=== PATIENT | male | born 1960 | race Caucasian/White ===

== ENCOUNTER 2017-04-10 04:29 | Inpatient (IN) ==
--- NOTE | 2017-04-10 06:41 | Internal Med History&Physical ---
Date of Encounter: 04/10/17 Time of Encounter: 06:38 Assessment and Plan (1) Acute congestive heart failure Current visit: Yes Status: Acute Echo from 2015 reveals grossly normal EF with diastolic dysfunction Current presentation with worsening shortness of breath, gross fluid overload, CHF findings on x-ray and good response to Lasix consistent with acute heart failure. Plan: Lasix 40 mg IV twice a day, rate control. Trend troponin to rule out ACS. Daily weights. Strict I's and O's. Fluid and salt restriction. Patient counseling regarding lifestyle modification. Qualifiers: Congestive heart failure type: diastolic Qualified Code(s): I50.31 - Acute diastolic (congestive) heart failure (2) COPD exacerbation Current visit: Yes Status: Acute He reports increased wheezing and shortness of breath, lung auscultation reveals bilateral expiratory wheezes. Plan: We will treat him with inhaled DuoNeb and IV steroids. (3) Type 2 diabetes mellitus Current visit: Yes Status: Acute We will provide insulin sliding scale, pre-meal and basal long-acting insulin. Qualifiers: Diabetes mellitus complication status: with circulatory complication Diabetes mellitus complication detail: with other circulatory complications Diabetes mellitus termination clerk insulin use: with skilled nursing use Qualified Code(s) : E11.59 - Type 2 diabetes mellitus with other circulatory complications; Z79.4 - group home (current) use of insulin (4) Morbid obesity Current visit: Yes Status: Acute Outpatient weight loss regimen. (5) Obstructive sleep apnea Current visit: Yes Status: Acute Nighttime CPAP. (6) Atrial fibrillation with RVR Current visit: No Status: Acute Continue Cardizem drip. Check echocardiogram. Trend troponin. Continue Eliquis. Internal Medicine - H&P: HPI Chief complaint: Shortness of breath Admitted From: Intrahospital Transfer Plans for Post Hospital Care: Home History of present illness: Mr. Almodovar is a 56 year old male with past medical history significant for COPD , coronary artery disease, atrial fibrillation and diabetes who presents to [facility] for evaluation of shortness of breath. He reports 3 days of progressively worsening severe shortness of breath exacerbated by exertion, associated with a dull substernal chest pain, palpitations described as rapid heartbeat, severe wheezing and dry cough. Denies fevers chills nausea vomiting bleeding bruising, reports chronic lower extremity edema. He presented to the emergency department at [facility] where he was found to be an atrophic fibrillation with rapid ventricular response he was given Lasix and nitroglycerin referred for transfer to our facility. A 10 point review of systems was negative except as above Family history was negative for premature coronary artery disease in his parents. Past Med Surg Social Fam HX - Past Medical History Medical history: CHF, coronary artery disease, diabetes, hyperlipidemia, hypertension Psychiatric history: no psych history - Past Surgical History Surgical History: angioplasty/stent - Social History Smoking Status: Never smoker Smokeless Tobacco Status: No Alcohol use: occasionally Drug use: none Internal Medicine - H&P: Meds Atorvastatin [Lipitor] 20 mg PO HS 06/06/15 [History] Carvedilol 25 mg PO BID 06/06/15 [History] Lisinopril [Zestril] 10 mg PO DAILY 06/06/15 [History] metFORMIN [Glucophage] 1,000 mg PO BIDWM 06/06/15 [History] Furosemide [Lasix] 40 mg PO BID 10/15/15 [History] Gabapentin [Neurontin] 600 mg PO TID 10/15/15 [History] Insulin Glargine,Hum.rec.anlog [Lantus Solostar] 70 unit SQ HS 10/15/15 [History ] Potassium Chloride [K-Tab ER] 20 meq PO BID 10/15/15 [History] Apixaban [Eliquis] 5 mg PO DAILY 04/10/17 [History] Fluticasone/Vilanterol [Breo Ellipta 100-25 Mcg INH] 1 each IH DAILY 04/10/17 [ History] Ipratropium/Albuterol Sulfate [Combivent Respimat Inhal [place]] 4 gm IH Q4H PRN 04/10/17 [History] Tiotropium [Spiriva] 18 mcg IH 0700 04/10/17 [History] 3 Allergy/AdvReac Type Severity Reaction Status Date / Time No Known Allergies Allergy Verified 04/10/17 03:16 All Systems PM: A 10-system review of systems was performed and is negative for pertinent findings except as documented above in the HPI. - Constitutional General appearance: Present: mild distress, A&O X 3 - Eye Eye exam: Present: PERRL, conjuntiva pink, sclera anicteric Pupils: Present: PERRL - Neck Neck exam general surgery: Present: supple, trachea midline. Absent: lymphadenopathy - Respiratory Respiratory exam: Present: wheezes (Bilateral expiratory wheezes). Absent: accessory muscle use, rales, rhonchi - Cardiovascular Cardiovascular exam: Present: irregular rhythm, +S1, +S2, tachycardia. Absent: diastolic murmur, gallop, JVD, rubs, systolic murmur - GI/Abdominal GI/Abdominal exam: Present: normal bowel sounds, soft (Obese), no peritoneal signs. Absent: distended, tenderness - Extremities Exam Extremities exam: Present: pedal edema (2+ lower extremity pitting edema), warm , radial pulses palpable and symmetrical. Absent: calf tenderness, cyanotic - Neurological Exam Neurological exam: Present: CN II-XII intact, oriented X3, no focal deficits. Absent: pronater drift, facial droop, speech deficit - Skin Skin exam: Present: dry, intact Internal Med - H&P Results - Labs Labs: Field medical record ABG reveals a pH of 7.34, PCO2 of 46, PO2 135. BNP was elevated at 233. Troponin was 0.02 - EKG Data -: EKG Interpreted by Myself (A. fib 136 BPM, old inferior wall RI with Q waves , rate related ST changes.) - Impressions Chest x-ray shows cardiomegaly and vascular congestion consistent with CHF.
[2017-04-10] MEDS ORDERED: *HR* OxyCODONE Immed Rel 5 MG TABLET PO PRN (06:52)
[2017-04-10] MEDS ORDERED: Acetaminophen 325 MG TABLET PO PRN (06:52)
[2017-04-10] MEDS ORDERED: Naloxone 0.4 MG/ML INJ IVP PRN (06:52)
[2017-04-10] MEDS ORDERED: 0.9 % Sodium Chloride 250 ML ONE (07:12)
[2017-04-10] MEDS ORDERED: *HR* Metoprolol 5 MG/5 ML VIAL IVP SCH (07:19)
[2017-04-10 07:52] LABS: Basophils # 0.1 K/mcL (0.0-0.2); Basophils % 0.6 %; Eosinophils % 0.2 %; Hematocrit 43.5 % (37.5-50.1); Hemoglobin 14.3 g/dL (12.9-16.9); Immature Granulocytes % 1.5 % (0-4); Lymphocytes # 0.6 K/mcL (0.6-4.6); Lymphocytes % 6.7 %; Mean Corpuscular HGB Conc 32.9 g/dL (31.6-35.5); Mean Corpuscular Hemoglobin 29.5 pg (28.0-33.3); Mean Corpuscular Volume 89.7 fL (83.0-100.0); Mean Platelet Volume 8.9 fL (9.4-12.4); Monocytes # 0.3 K/mcL (0.0-1.3); Monocytes % 2.9 %; Neutrophils # 7.5 K/mcL (1.6-8.9); Platelet Count 236 K/mcL (140-400); Red Blood Count 4.85 M/mcL (4.19-5.50); Red Cell Distribution Width 14.5 % (11.5-14.5); Segmented Neutrophils % 88.1 %
[2017-04-10] MEDS ORDERED: Ipratropium/Albuterol Neb 3 ML IH SCH ×2 (08:00)
[2017-04-10 08:06] LABS: Alanine Aminotransferase 62 Units/L (0-55); Albumin 3.6 g/dL (3.5-5.0); Albumin/Globulin Ratio 1.1 (1.1-2.2); Alkaline Phosphatase 81 Units/L (38-126); Aspartate Amino Transferase 25 Units/L (5-34); BUN/Creatinine Ratio 18 (6-26); Bilirubin,Total 0.7 mg/dL (0.2-1.2); Blood Urea Nitrogen 19 mg/dL (8-26); Carbon Dioxide 26 mEq/L (19-29); Chloride 102 mEq/L (98-109); Globulin 3.4 g/dL (2.4-3.5); Glucose 470 mg/dL (70-99); Osmolality,Calculated 311 (280-300); Sodium 139 mEq/L (136-145); eGFR For African Americans > 60 (> 60); eGFR For Non-African Americans > 60 (> 60)
[2017-04-10 08:22] LABS: Thyroid Stimulating Hormone 0.954 mcIU/mL (0.350-4.840)
[2017-04-10] MEDS ORDERED: APIXABAN 5 MG TABLET PO SCH (09:00)
[2017-04-10] MEDS: *HR* Metoprolol 5 MG/5 ML VIAL IVP PRN (09:00)
[2017-04-10] MEDS: Gabapentin 300 MG CAPSULE PO SCH ×3 (09:00→20:31)
[2017-04-10] MEDS: Furosemide 40 MG/4 ML VIAL IVP SCH ×2 (09:01→20:31)
[2017-04-10] MEDS ORDERED: Diltiazem CD (24hr) 180 MG CAPSULE PO SCH (10:30)
[2017-04-10] MEDS ORDERED: Ipratropium/Albuterol Neb 3 ML IH PRN (10:49)
[2017-04-10] MEDS ORDERED: D5% in Water 1,000 ML IVC PRN (10:51)
[2017-04-10] MEDS ORDERED: *HR* Dextrose 50 % in Water (Syg) 50 ML SYRINGE IVP PRN (10:51)
[2017-04-10] MEDS ORDERED: Dextrose Gel 15 GM PO PRN ×2 (10:51)
--- NOTE | 2017-04-10 10:53 | Event Note ---
<Mojgan Aguilar - Last Filed: 04/10/17 10:38> Date of Encounter: 04/10/17 Time of Encounter: 10:38 56 year old male evaluated at bedside. He was admitted overnight for Afib RVR. Patient was laying up in bed comfortably, in no acute distress. He states he has not missed any doses of his home medications. He denies nausea or vomiting, has mild diarrhea. admits to shortness of breath and wheezing. denies fever or chills. Physical Exam: General: alert and oriented x3, obese, in no apparent distress CV: tachycardic, irregular rhythm Respiratory: mild bilateral wheezing present ABdomen: obese, distended, firm, non tender, positive bowel sounds Extremities: bilateral lower extremity +1 pitting edema, ulcer found on right lomas anteriorly, bilateral lower extremity erythema present. Assessment/Plan: 1. Afib RVR Etiology likely multifactorial in setting of fluid overload, vascular congestion , morbid obesity, MARAI DOLORES. patient would likely benefit from bariatric surgery. Plan: continue IV cardizem drip initated PO cardizem 180mg CD daily continue to monitor. Echo pending 2. Acute CHF: last echo fro 07/01/15 showed LVE 50%, mild concentric LVH, moderate LV diastolic dysfunction, RV not well viisualized, mild aortic sclerosis CXR showed cardiomegaly, vascular congestion Plan: continue lasix 40mg IV BID 3. COPD: likely not in exacerbation. mild wheezing present on exam. continue PRN duoNebs at this time. 4. Type 2 DM uncontrolled. glucose this am 470 continue basal insulin, medium dose sliding scale, ACHS accuchecks, diabetic diet. 5. morbid obesity 6. MARIA DOLORES continue CPAP at night. 7. DVT prophylaxis: continue Eliquis. <Mat Watt - Last Filed: 04/10/17 13:54> Date of Encounter: 04/10/17 I examined this patient and my medical decision-making was reviewed with the Resident Physician. I agree with the documented findings, disposition and treatment plan as described except to the extent set forth below.
--- NOTE | 2017-04-10 11:02 | Cardiology Consult Note ---
Date of Encounter: 04/10/17 Time of Encounter: 08:30 Assessment and Plan (1) Atrial flutter with rapid ventricular response Current Visit: Yes Status: Acute Per cardiology: -ECG with atrial flutter with RVR, HR 136. -Recently diagnosed with atrial fibrillation per primary epidemiology intern. -CHads 2 vasc score 3 (HTN, vascular disease, DM). ON elqiuis. Denies bleeding or blood loss. Will change to BID dosing of elqiuis. -TSH, Mg, and K within normal limits. -ON beta miles and cardizem drip at 12.5mg/hour. -Echo pending, will complete once HR is controlled. -Will complete echo once HR is controlled. -Recommend titrate cardizem drip. -Eliquis changed to BID dosing. -Will obtain records from primary epidemiology intern office. (2) Diastolic congestive heart failure, NYHA class 3 Current Visit: Yes Status: Suspected Per cardiology: -Suspected diastolic CHF. -Reports worsening edema. 2+ pitting edema bilaterally. -Reports increased shortness of breath. Mild pulmonary vascular congestion noted per chest x-ray. -ECHo [facility] 2014 with LVEF 50%, mild concentric LVH, moderate diastolic dysufnction, mild , mildly dilated sinus of valsalva. -Reports recent echo at primary epidemiology intern office. -ON lasix 40IV BID started per primary service. -Patient states baseline weight 321 pounds, weight per [facility] 331 pounds. -Strict I/os, daily weights, and fluid restriction. -Will continue to monitor Qualifiers: Congestive heart failure chronicity: acute Qualified Code(s): I50.31 - Acute diastolic (congestive) heart failure (3) Coronary artery disease Current Visit: Yes Status: Acute Per cardiology: -Known CAD with reports LHC and stenting 2013. -On statin, beta blcoker. -Denies current chest pain, however stats did have some chest pain when HR was elevated. -ECG with atrial flutter. -Troponins negative x2. -Echo [facility] 2014 as above. -Reports recent echo and stress at primary epidemiology intern. -Will obtain records from primary epidemiology intern. -Will continue to monitor. Qualifiers: Coronary Disease-Associated Artery/Lesion type: [place] artery [place] vs. transplanted heart: [place] heart Associated angina: without angina Qualified Code(s): I25.10 - Atherosclerotic heart disease of [place] coronary artery without angina pectoris Discussion w patient/family: The assessment and plan as outlined above was discussed with the patient who expressed understanding and agreement. All questions were answered. Thank you for involving us in the care of your patient. Please call with any questions. Discussed and reviewed with . History of Present Illness Consult date: 04/10/17 Requesting physician: Hunter Castro Consult reason: CHF exacerbation, atrial fibrillation RVR Chief complaint: shortness of breath History of present illness: Mr. Almodovar is a 56 year old male with a relevant past medical history of CAD, [place] with reported LHC and stenting 2013, DM, HTN, hyperlipidemia, and family history of CAD. Patient states he went to see his primary epidemiology intern, Dr.Bruce Qureshi, 3 weeks ago and was noted to be in atrial fibrillation. The patient states his HR was elevated and increased his beta miles and sent him home. Patient states since this diagnosis, he has become more shortness of breath. Patient states he decided to go to ER due to shortness of breath. Patient states he did have some chest pain that occured at rest when his HR was elevated. Patient denies current chest pain. Patient admits to palpitations. Patient admits to increased shortness of breath. Patient reports had recent nuclear stress and echo at primary epidemiology intern office within the last 2 months. Past Med Surg Social Fam HX - Past Medical History Attestation: Yes The following information was validated with the patient. Source: patient Medical history: CHF, coronary artery disease, diabetes, hyperlipidemia, hypertension Psychiatric history: no psych history - Past Surgical History Surgical History: angioplasty/stent - Social History Smoking Status: Never smoker Smokeless Tobacco Status: No Alcohol use: occasionally Drug use: none - Family History Father Living Status: Age at : 65 Cause of : Cancer Hx Family Cardiac Disorders: Yes (HTN) Hx Family Cancer: Yes (skin) Mother Living Status: Age at : 71 Cause of : Heart attack Hx Family Cardiac Disorders: Yes ([place]) Hx Family Respiratory Disorders: Yes (COPD) Hx Family Endocrine Disorder: Yes (DM) Medications and Allergies Atorvastatin [Lipitor] 20 mg PO HS 06/06/15 [History] Carvedilol 25 mg PO BID 06/06/15 [History] Lisinopril [Zestril] 10 mg PO DAILY 06/06/15 [History] metFORMIN [Glucophage] 1,000 mg PO BID 06/06/15 [History] Furosemide [Lasix] 40 mg PO DAILY PRN 10/15/15 [History] Insulin Glargine,Hum.rec.anlog [Lantus Solostar] 70 unit SQ HS 10/15/15 [History ] Potassium Chloride [K-Tab ER] 20 meq PO BID 10/15/15 [History] Apixaban [Eliquis] 5 mg PO BID 04/10/17 [History] Fluticasone/Vilanterol [Breo Ellipta 200-25 Mcg INH] 1 puff IH DAILY 04/10/17 [ History] Gabapentin [Neurontin] 800 mg PO TID 04/10/17 [History] Ipratropium/Albuterol Sulfate [Combivent Respimat Inhal [place]] 1 puff IH QID [History] Tiotropium [Spiriva] 18 mcg IH DAILY 04/10/17 [History] glipiZIDE [Glipizide] 5 mg PO DAILY 04/10/17 [History] 3 Allergy/AdvReac Type Severity Reaction Status Date / Time No Known Allergies Allergy Verified 04/10/17 03:16 All Systems Review: A 10-system review of systems was performed and is negative for pertinent findings except as documented above in the HPI. - Cardiovascular Cardiovascular: as per HPI, chest pain at rest, dyspnea on exertion, irregular heart rhythm, palpitations Physical Examination Vital Signs, Last 4 Hours Temp Pulse Resp BP Pulse Ox 04/10/17 07:55 97.6 F 132 20 130/82 92 General: Conversant, No Apparent Distress HEENT: Atraumatic, Normocephaly, Mucus Membranes Moist Neck: No JVD, Normal carotid pulses Cardiac: Normal S1 and S2, No Murmur, Other (Irregularly, irregular) Lungs: Other (Lung sounds diminished throughout. ) Neuro: Alert and responsive, No focal deficits noted Abdomen: Soft, Non-Tender Skin: No rashes noted on visualized skin Musculoskeletal: No Chest Wall Tenderness Extremities: No Clubbing, No Cyanosis, Normal Pulses, Other (2+ bilateral lower extremity pitting edema. ) Results 04/10/17 07:10 04/10/17 07:10 Lab Results Active Medications Acetaminophen (Tylenol) 650 mg PO Q6HR PRN PRN Reason: Mild Pain (1-3) Stop: 10/10/17 06:53 Albuterol/Ipratropium (Duoneb) 3 ml IH [id number] PRN PRN Reason: Wheezing Stop: 10/10/17 08:01 Apixaban (Eliquis) 5 mg PO BID KARIE Stop: 10/10/17 21:01 Atorvastatin Calcium (Lipitor) 20 mg PO HS KARIE Stop: 10/10/17 21:01 Dextrose/Water (Dextrose 50% (Syg)) 25 ml IVP AD PRN PRN Reason: Hypoglycemia Stop: 10/10/17 10:52 Diltiazem HCl (Cardizem Cd) 180 mg PO DAILY [facility] Stop: 10/10/17 10:31 Last Admin: 04/10/17 10:29 Dose: 180 mg Docusate Sodium (Colace) 100 mg PO BID PRN PRN Reason: Constipation Stop: 10/10/17 06:53 Furosemide (Lasix) 40 mg IVP BID [facility] Stop: 10/10/17 09:01 Last Admin: 04/10/17 09:01 Dose: 40 mg Gabapentin (Neurontin) 600 mg PO TID KARIE Stop: 10/10/17 09:01 Last Admin: 04/10/17 09:00 Dose: 600 mg Glucagon (Glucagen) 1 mg IM ONCE PRN PRN Reason: Hypoglycemia Stop: 10/10/17 10:52 Glucose (Gluctose) 15 gm PO ONCE PRN PRN Reason: Hypoglycemia Stop: 10/10/17 10:52 Glucose (Gluctose) 30 gm PO ONCE PRN PRN Reason: Hypoglycemia Stop: 10/10/17 10:52 Diltiazem HCl 125 mg/ Dextrose 125 mls @ 10 mls/hr IVC .[id number] KARIE; 10 MG/HR PRN Reason: Protocol Stop: 10/10/17 07:01 Last Titration: 04/10/17 10:15 Dose: 17.5 mg/hr, 17.5 mls/hr Dextrose (Dextrose 5%) 1,000 mls @ 100 mls/hr IVC .Q10H PRN PRN Reason: HYPOGLYCEMIA Stop: 10/10/17 10:52 Insulin Detemir (Levemir) 50 unit SQ HS KARIE Stop: 10/10/17 21:01 Insulin Human Lispro (Humalog) 0 units SQ HS KARIE PRN Reason: Protocol Stop: 10/10/17 21:01 Insulin Human Lispro (Humalog) 0 units SQ TIDAC KARIE PRN Reason: Protocol Stop: 10/10/17 11:31 Lisinopril (Zestril) 10 mg PO DAILY KARIE PRN Reason: Protocol Stop: 10/10/17 09:01 Last Admin: 04/10/17 10:17 Dose: 10 mg Metoprolol Tartrate (Lopressor) 5 mg IVP Q6HR PRN PRN Reason: tachycardia Stop: 10/10/17 07:20 Last Admin: 04/10/17 09:00 Dose: 5 mg Naloxone HCl (Narcan) 0.4 mg IVP Q2MIN PRN PRN Reason: Opioid Reversal Stop: 10/10/17 06:53 Oxycodone HCl (Roxicodone) 5 mg PO Q6HR PRN PRN Reason: Moderate Pain (4-6) Stop: 10/10/17 06:53 Pharmacy Profile Note (Patient Taking Own Medication) 1 each IH DAILY [facility] Stop: 10/10/17 09:01 Last Admin: 04/10/17 10:30 Dose: Not Given Laboratory Tests 04/10/17 04/10/17 04/10/17 02:25 07:10 07:10 Hgb 14.3 Potassium 4.0 Creatinine 1.05 Magnesium Troponin I 0.02 TSH 0.954 04/10/17 04/10/17 07:10 08:30 Hgb Potassium Creatinine Magnesium 2.2 Troponin I 0.03 TSH - Imaging and Cardiology Chest Xray: report reviewed Echo: pending - EKG Interpretation EKG results cardiology: personally reviewed (ECG with atrial flutter with RVR, HR 136.), other (Telemetry reviewed with average HR 129, atrial flutter.) Consult Discharge Plan - Plan Referrals: Candelaria Gifford, HOSPITAL INTERN [Primary Care Provider] -
[2017-04-10] MEDS ORDERED: methylPREDNISolone 125 MG/2 ML VIAL IVP SCH (12:00)
[2017-04-10] MEDS: Metoprolol XL (24 HR) Succ 50 MG TAB.ER.24H PO SCH ×2 (12:27→20:31)
[2017-04-10] MEDS: Insulin LISPRO 300 UNITS/3 ML VIAL SQ SCH ×3 (15:33→22:49)
[2017-04-10] MEDS ORDERED: *HR* Metoprolol 5 MG/5 ML VIAL IVP ONE (19:05)
[2017-04-10] MEDS: APIXABAN 5 MG TABLET PO SCH (20:31)
[2017-04-10] MEDS ORDERED: Insulin DETEMIR 100 UNIT/ML X5UNITS SQ SCH (21:00)
[2017-04-11] MEDS ORDERED: 0.9 % Sodium Chloride 500 ML ONE (00:32)
[2017-04-11 04:42] LABS: Basophils % 0.1 %; Hematocrit 44.6 % (37.5-50.1); Hemoglobin 14.2 g/dL (12.9-16.9); Lymphocytes # 0.8 K/mcL (0.6-4.6); Lymphocytes % 5.6 %; Mean Corpuscular HGB Conc 31.8 g/dL (31.6-35.5); Mean Corpuscular Hemoglobin 28.4 pg (28.0-33.3); Mean Corpuscular Volume 89.2 fL (83.0-100.0); Mean Platelet Volume 8.5 fL (9.4-12.4); Monocytes % 7.6 %; Neutrophils # 11.6 K/mcL (1.6-8.9); Platelet Count 296 K/mcL (140-400); Red Cell Distribution Width 14.6 % (11.5-14.5); Segmented Neutrophils % 85.7 %
[2017-04-11 04:58] LABS: BUN/Creatinine Ratio 21 (6-26); Blood Urea Nitrogen 20 mg/dL (8-26); Calcium 9.9 mg/dL (8.6-10.8); Carbon Dioxide 29 mEq/L (19-29); Chloride 100 mEq/L (98-109); Glucose 356 mg/dL (70-99); Osmolality,Calculated 305 (280-300); Potassium 3.8 mEq/L (3.5-4.5); Sodium 139 mEq/L (136-145); eGFR For African Americans > 60 (> 60); eGFR For Non-African Americans > 60 (> 60)
[2017-04-11] MEDS: Furosemide 40 MG/4 ML VIAL IVP SCH ×2 (07:50→21:35)
[2017-04-11] MEDS: Gabapentin 300 MG CAPSULE PO SCH ×3 (07:51→21:35)
[2017-04-11] MEDS: APIXABAN 5 MG TABLET PO SCH ×2 (07:51→21:35)
[2017-04-11] MEDS: Metoprolol XL (24 HR) Succ 50 MG TAB.ER.24H PO SCH ×3 (07:51→21:35)
[2017-04-11] MEDS: Aspirin Enteric Coated 81 MG Tablet PO SCH (07:51)
[2017-04-11] MEDS: *HR* Metoprolol 5 MG/5 ML VIAL IVP PRN ×2 (07:51→14:50)
[2017-04-11] MEDS: Insulin LISPRO 300 UNITS/3 ML VIAL SQ SCH ×4 (07:52→21:36)
[2017-04-11] MEDS ORDERED: Metoprolol XL (24 HR) Succ 50 MG TAB.ER.24H PO ONE (08:50)
[2017-04-11] MEDS ORDERED: Metoprolol XL (24 HR) Succ 50 MG TAB.ER.24H PO SCH (09:00)
--- NOTE | 2017-04-11 09:07 | Internal Med Progress Note ---
<RonyMojgan bullock - Last Filed: 04/11/17 09:05> Date of Encounter: 04/11/17 Time of Encounter: 09:05 - Assessment and plan (1) Atrial fibrillation with RVR Current Visit: No Status: Acute Assessment and plan: Etiology likely multifactorial in setting of fluid overload, vascular congestion , morbid obesity, MARIA DOLORES. patient would likely benefit from bariatric surgery. Plan: HR still not well controlled. Appreciate cardio recs initated PO cardizem 180mg CD daily. Echo pending once HR is controlled, per cardiology. patient currently on cardizem gtt metoprolol XL increased to 100 BID per cardio (2) Leukocytosis Current Visit: Yes Status: Acute Assessment and plan: notice increased WBC from 8.6 yesterday to 13.5 2V CXR shows cardiomegaly with vascular congestion with no inverval change since prior study Plan: continue to monitor and start antibiotics as needed. Qualifiers: Leukocytosis type: unspecified Qualified Code(s): D72.829 - Elevated white blood cell count, unspecified (3) Acute congestive heart failure Current Visit: Yes Status: Acute Assessment and plan: plan as above. Qualifiers: Congestive heart failure type: diastolic Qualified Code(s): I50.31 - Acute diastolic (congestive) heart failure (4) COPD (chronic obstructive pulmonary disease) Current Visit: Yes Status: Acute Assessment and plan: not in exacerbation. continue PRN duoNebs at this time. (5) Type 2 diabetes mellitus Current Visit: Yes Status: Acute Assessment and plan: uncontrolled. Last A1C in Sep 2016 was 9.9. will re check A1C tomorrow. continue sliding scale, ADA diet, ACHS accuchecks. Qualifiers: Diabetes mellitus complication status: with circulatory complication Diabetes mellitus complication detail: with other circulatory complications Diabetes mellitus mcfp insulin use: with intermodal dispatcher use Qualified Code(s) : E11.59 - Type 2 diabetes mellitus with other circulatory complications; Z79.4 - vermin exterminator (current) use of insulin (6) Morbid obesity Current Visit: Yes Status: Acute (7) Obstructive sleep apnea Current Visit: Yes Status: Acute Assessment and plan: continue CPAP at night. (8) DVT prophylaxis Current Visit: Yes Status: Acute Assessment and plan: Eliquis - Constitutional Vitals: Temp Pulse Resp BP Pulse Ox 97.4 F L 130 18 134/86 94 04/11/17 07:40 04/11/17 07:40 04/11/17 07:40 04/11/17 07:40 04/11/17 07:40 General appearance: Present: mild distress, A&O X 3 Internal Medicine: Result - Labs CBC & Chem 7: 04/11/17 04:11 04/11/17 04:11 Labs: Short CBC 04/11/17 Range/Units 04:11 WBC 13.5 H D (4.3-11.1) K/mcL Hgb 14.2 (12.9-16.9) g/dL Hct 44.6 (37.5-50.1) % Plt Count 296 (140-400) K/mcL Neutrophils # 11.6 H (1.6-8.9) K/mcL BMP 04/11/17 04:11 Sodium 139 Potassium 3.8 Chloride 100 Carbon Dioxide 29 BUN 20 Creatinine 0.96 Glucose 356 H Calcium 9.9 Cardiac Enzymes 04/10/17 Range/Units 12:23 Troponin I 0.02 (0-0.03) ng/mL - Impressions Impressions Chest X-Ray 04/11/17 07:46 IMPRESSION: No significant interval change. D/ / Dean Alcocer MD / Dean Alcocer MD Interpreting Provider: Dean Alcocer MD Consult Discharge Plan - Plan Referrals: Candelaria Gifford, [facility] [employer] [Primary Care Provider] - <Mat Watt P - Last Filed: 04/11/17 17:20> Date of Encounter: 04/11/17 - Constitutional Vitals: Temp Pulse Resp BP Pulse Ox 97.6 F 88 18 126/87 94 04/11/17 16:16 04/11/17 16:16 04/11/17 16:16 04/11/17 16:16 04/11/17 16:16 Internal Medicine: Result - Labs CBC & Chem 7: 04/11/17 04:11 04/11/17 04:11 Labs: Short CBC 04/11/17 Range/Units 04:11 WBC 13.5 H D (4.3-11.1) K/mcL Hgb 14.2 (12.9-16.9) g/dL Hct 44.6 (37.5-50.1) % Plt Count 296 (140-400) K/mcL Neutrophils # 11.6 H (1.6-8.9) K/mcL BMP 04/11/17 04:11 Sodium 139 Potassium 3.8 Chloride 100 Carbon Dioxide 29 BUN 20 Creatinine 0.96 Glucose 356 H Calcium 9.9 - Impressions Impressions Chest X-Ray 04/11/17 07:46 IMPRESSION: No significant interval change. D/ / Dean Alcocer MD / Dean Alcocer MD Interpreting Provider: Dean Alcocer MD - Attending Attestation I examined this patient and my medical decision-making was reviewed with the Resident Physician. I agree with the documented findings, disposition and treatment plan as described except to the extent set forth below.
[2017-04-11] MEDS ORDERED: Insulin DETEMIR 100 UNIT/ML X5UNITS SQ SCH (09:09)
--- NOTE | 2017-04-11 09:34 | Cardiology Progress Note ---
Date of Encounter: 04/11/17 Time of Encounter: 08:30 Assessment and Plan (1) Atrial flutter with rapid ventricular response Current Visit: Yes Status: Acute Per cardiology: -ECG with atrial flutter with RVR, HR 136. -Recently diagnosed with atrial fibrillation per primary reception interviewer. -CHads 2 vasc score 3 (HTN, vascular disease, DM). ON elqiuis. Denies bleeding or blood loss. -TSH, Mg, and K within normal limits. -ON beta miles and cardizem drip at 15mg/hour. -Echo pending, will complete once HR is controlled. -Awaiting records from primary reception interviewer office regarding recent echo and stress. -Toprol increased to 100mg BID. -WIll continue to monitor. -Can consider transfer to to further titrate cardizem. (2) Diastolic congestive heart failure, NYHA class 3 Current Visit: Yes Status: Suspected Per cardiology: -Suspected diastolic CHF. -Reports worsening edema, slightly imrpoved today. 1+ pitting edema bilaterally. -Reports increased shortness of breath. Mild pulmonary vascular congestion noted per chest x-ray. -ECHo [facility] 2014 with LVEF 50%, mild concentric LVH, moderate diastolic dysufnction, mild , mildly dilated sinus of valsalva. -Reports recent echo at primary reception interviewer office. -ON lasix 40IV BID started per primary service. -Patient states baseline weight 321 pounds, weight per ARM 331 pounds on admission. Weight today 327.1 pounds. -Net positive 600ml this admission. -CHF education reinforced. -Strict I/os, daily weights, and fluid restriction. -Will increase lasix to 60mg IV BID. -Will continue to monitor. Qualifiers: Congestive heart failure chronicity: acute Qualified Code(s): I50.31 - Acute diastolic (congestive) heart failure (3) Coronary artery disease Current Visit: Yes Status: Acute Per cardiology: -Known CAD with reports C and stenting 2013. -On statin, beta blcoker. -Denies current chest pain, however stats did have some chest pain when HR was elevated. Denies chest pain overnight. -ECG with atrial flutter. -Troponins negative x3. -Echo ARM 2014 as above. -Reports recent echo and stress at primary reception interviewer. -Will obtain records from primary reception interviewer. -Will continue to monitor. Qualifiers: Coronary Disease-Associated Artery/Lesion type: [place] artery [place] vs. transplanted heart: [place] heart Associated angina: without angina Qualified Code(s): I25.10 - Atherosclerotic heart disease of [place] coronary artery without angina pectoris Discussion w patient/family: The assessment and plan as outlined above was discussed with the patient who expressed understanding and agreement. All questions were answered. Thank you for involving us in the care of your patient. Please call with any questions. Discussed and reviewed with . Subjective Principal diagnosis: atrial fibrillation with RVR Interval history: Patient stats he feels slightly better than yesterday. Denies chest pain. Admits to shortness of breath. States edema is somewhat improved. Objective Vital Signs, Last 4 Hours Temp Pulse Resp BP Pulse Ox 04/11/17 07:40 97.4 F L 130 18 134/86 94 General: Conversant, No Apparent Distress HEENT: Atraumatic, Normocephaly, Mucus Membranes Moist Neck: No JVD, Normal carotid pulses Cardiac: Normal S1 and S2, No Murmur, Other (Irregularly irregular. Tachycardic. ) Lungs: Normal Breath Sounds, No Wheeze, Rales, Rhonchi Neuro: Alert and responsive, No focal deficits noted Abdomen: Soft, Non-Tender Skin: No rashes noted on visualized skin Musculoskeletal: No Chest Wall Tenderness Extremities: No Clubbing, No Cyanosis, Normal Pulses, Other (1+ bilateral lower extremity pitting edema. ) Results 04/11/17 04:11 04/11/17 04:11 Lab Results Impressions Chest X-Ray 04/11/17 07:46 IMPRESSION: No significant interval change. D/ / Dean Alcocer MD / Dean Alcocer MD Interpreting Provider: Dean Alcocer MD Active Medications Acetaminophen (Tylenol) 650 mg PO Q6HR PRN PRN Reason: Mild Pain (1-3) Stop: 10/10/17 06:53 Albuterol/Ipratropium (Duoneb) 3 ml IH [id number] PRN PRN Reason: Wheezing Stop: 10/10/17 08:01 Apixaban (Eliquis) 5 mg PO BID [facility] Stop: 10/10/17 21:01 Last Admin: 04/11/17 07:51 Dose: 5 mg Aspirin (Aspirin Ec) 81 mg PO DAILY [facility] Stop: 10/11/17 09:01 Last Admin: 04/11/17 07:51 Dose: 81 mg Atorvastatin Calcium (Lipitor) 20 mg PO HS [facility] Stop: 10/10/17 21:01 Last Admin: 04/10/17 20:31 Dose: 20 mg Dextrose/Water (Dextrose 50% (Syg)) 25 ml IVP AD PRN PRN Reason: Hypoglycemia Stop: 10/10/17 10:52 Docusate Sodium (Colace) 100 mg PO BID PRN PRN Reason: Constipation Stop: 10/10/17 06:53 Furosemide (Lasix) 40 mg IVP BID [facility] Stop: 10/10/17 09:01 Last Admin: 04/11/17 07:50 Dose: 40 mg Gabapentin (Neurontin) 600 mg PO TID [facility] Stop: 10/10/17 09:01 Last Admin: 04/11/17 07:51 Dose: 600 mg Glucagon (Glucagen) 1 mg IM ONCE PRN PRN Reason: Hypoglycemia Stop: 10/10/17 10:52 Glucose (Gluctose) 15 gm PO ONCE PRN PRN Reason: Hypoglycemia Stop: 10/10/17 10:52 Glucose (Gluctose) 30 gm PO ONCE PRN PRN Reason: Hypoglycemia Stop: 10/10/17 10:52 Diltiazem HCl 125 mg/ Dextrose 125 mls @ 10 mls/hr IVC .[id number] KARIE; 10 MG/HR PRN Reason: Protocol Stop: 10/10/17 07:01 Last Admin: 04/11/17 06:54 Dose: 15 mg/hr, 15 mls/hr Dextrose (Dextrose 5%) 1,000 mls @ 100 mls/hr IVC .Q10H PRN PRN Reason: HYPOGLYCEMIA Stop: 10/10/17 10:52 Insulin Detemir (Levemir) 60 unit SQ HS [facility] Stop: 10/11/17 09:11 Insulin Human Lispro (Humalog) 0 units SQ HS [facility] PRN Reason: Protocol Stop: 10/10/17 21:01 Last Admin: 04/10/17 22:49 Dose: 8 units Insulin Human Lispro (Humalog) 0 units SQ TIDAC KARIE PRN Reason: Protocol Stop: 10/10/17 11:31 Last Admin: 04/11/17 07:52 Dose: 12 units Lisinopril (Zestril) 10 mg PO DAILY KARIE PRN Reason: Protocol Stop: 10/10/17 09:01 Last Admin: 04/11/17 07:51 Dose: 10 mg Metoprolol Succinate (Toprol Xl) 100 mg PO BID [facility] Stop: 10/11/17 09:01 Last Admin: 04/11/17 08:51 Dose: Not Given Metoprolol Tartrate (Lopressor) 5 mg IVP Q6HR PRN PRN Reason: tachycardia Stop: 10/10/17 07:20 Last Admin: 04/11/17 07:51 Dose: 5 mg Naloxone HCl (Narcan) 0.4 mg IVP Q2MIN PRN PRN Reason: Opioid Reversal Stop: 10/10/17 06:53 Oxycodone HCl (Roxicodone) 5 mg PO Q6HR PRN PRN Reason: Moderate Pain (4-6) Stop: 10/10/17 06:53 Pharmacy Profile Note (Patient Taking Own Medication) 1 each IH DAILY [facility] Stop: 10/10/17 09:01 Last Admin: 04/11/17 08:51 Dose: Not Given Laboratory Tests 04/11/17 04/11/17 04:11 04:11 WBC 13.5 H D Creatinine 0.96 - Imaging and Cardiology Chest Xray: report reviewed - EKG Interpretation EKG results cardiology: other (Telemetry reviewed with average HR previous 12 hours noted to be 113, atrial flutter. PVCS noted.) Consult Discharge Plan - Plan Referrals: Candelaria Gifford, SALICYLIC ACID BLENDER [Primary Care Provider] -
[2017-04-11] MEDS ORDERED: Furosemide 20 MG/2 ML VIAL IVP ONE (09:39)
[2017-04-11] MEDS ORDERED: Insulin LISPRO 300 UNITS/3 ML VIAL SQ ONE (16:27)
[2017-04-11] MEDS: Insulin DETEMIR 100 UNIT/ML X5UNITS SQ SCH (21:37)
[2017-04-12] MEDS: *HR* Metoprolol 5 MG/5 ML VIAL IVP PRN ×3 (00:06→15:18)
[2017-04-12] MEDS ORDERED: 0.9 % Sodium Chloride 250 ML ONE (03:57)
[2017-04-12 05:39] LABS: Eosinophils % 1.1 %; Hematocrit 45.6 % (37.5-50.1); Hemoglobin 14.3 g/dL (12.9-16.9); Immature Granulocytes % 0.8 % (0-4); Lymphocytes % 11.9 %; Mean Corpuscular HGB Conc 31.4 g/dL (31.6-35.5); Mean Corpuscular Hemoglobin 28.2 pg (28.0-33.3); Mean Corpuscular Volume 89.9 fL (83.0-100.0); Mean Platelet Volume 8.3 fL (9.4-12.4); Monocytes % 10.6 %; Platelet Count 308 K/mcL (140-400); Red Blood Count 5.07 M/mcL (4.19-5.50); Red Cell Distribution Width 14.7 % (11.5-14.5); Segmented Neutrophils % 75.2 %
[2017-04-12 05:40] LABS: Basophils % 0.4 %; Eosinophils # 0.1 K/mcL (0.0-0.6); Lymphocytes # 1.3 K/mcL (0.6-4.6); Monocytes # 1.1 K/mcL (0.0-1.3)
[2017-04-12 05:52] LABS: Hemoglobin A1C 9.6 %
[2017-04-12 05:55] LABS: BUN/Creatinine Ratio 28 (6-26); Blood Urea Nitrogen 24 mg/dL (8-26); Carbon Dioxide 31 mEq/L (19-29); Chloride 100 mEq/L (98-109); Glucose 267 mg/dL (70-99); Osmolality,Calculated 305 (280-300); Potassium 3.6 mEq/L (3.5-4.5); Sodium 141 mEq/L (136-145); eGFR For African Americans > 60 (> 60); eGFR For Non-African Americans > 60 (> 60)
[2017-04-12] MEDS: Gabapentin 300 MG CAPSULE PO SCH ×3 (08:04→23:07)
[2017-04-12] MEDS: Metoprolol XL (24 HR) Succ 50 MG TAB.ER.24H PO SCH ×2 (08:04→23:08)
[2017-04-12] MEDS: Aspirin Enteric Coated 81 MG Tablet PO SCH (08:04)
[2017-04-12] MEDS: APIXABAN 5 MG TABLET PO SCH ×2 (08:04→23:08)
[2017-04-12] MEDS: Insulin LISPRO 300 UNITS/3 ML VIAL SQ SCH ×4 (08:08→23:13)
[2017-04-12] MEDS: Furosemide 40 MG/4 ML VIAL IVP SCH ×2 (08:10→17:37)
[2017-04-12] MEDS: Budesonide/Formoterol 160/4.5 MDI IH SCH ×2 (10:28→21:01)
--- NOTE | 2017-04-12 10:28 | Cardiology Progress Note ---
Date of Encounter: 04/12/17 Time of Encounter: 09:00 Assessment and Plan (1) Atrial fibrillation and flutter Current Visit: Yes Status: Acute Per cardiology: -ECG with atrial flutter with RVR, HR 136. Atrial fibrillation overnight. -Recently diagnosed with atrial fibrillation per primary tray packer. -CHads 2 vasc score 3 (HTN, vascular disease, DM). ON elqiuis. Denies bleeding or blood loss. -TSH, Mg, and K within normal limits. -ON beta miles and cardizem drip at 15mg/hour. -Echo pending, will complete once HR is controlled. -Awaiting records from primary tray packer office regarding recent echo and stress. -Average HR previous 12 hours noted to be 130. -Per discussion with , will given IV digoxin load. -Will make NPO after midnight for possible BHAVANI/Cardioversion. -Will continue to monitor. (2) Diastolic congestive heart failure, NYHA class 3 Current Visit: Yes Status: Suspected Per cardiology: -Suspected diastolic CHF. -Reports worsening edema, slightly imrpoved today. 1+ pitting edema bilaterally. -Reports increased shortness of breath. Mild pulmonary vascular congestion noted per chest x-ray. -ECHo [facility] 2014 with LVEF 50%, mild concentric LVH, moderate diastolic dysufnction, mild , mildly dilated sinus of valsalva. -Reports recent echo at primary tray packer office. -ON lasix 60IV BID started per primary service. -Patient states baseline weight 321 pounds, weight per ARM 331 pounds on admission. Weight today 328.5 pounds. -Net negative 2035ml this admission. -CHF education reinforced. -Strict I/os, daily weights, and fluid restriction. -Will continue to monitor. Qualifiers: Congestive heart failure chronicity: acute Qualified Code(s): I50.31 - Acute diastolic (congestive) heart failure (3) Coronary artery disease Current Visit: Yes Status: Acute Per cardiology: -Known CAD with reports C and stenting 2013. -On statin, beta blcoker. -Denies current chest pain, however stats did have some chest pain when HR was elevated. Denies chest pain overnight. -ECG with atrial flutter. -Troponins negative x3. -Echo [facility] 2014 as above. -Reports recent echo and stress at primary tray packer. -Will obtain records from primary tray packer. -Will continue to monitor. -Will check echo once HR controlled. Qualifiers: Coronary Disease-Associated Artery/Lesion type: [place] artery [place] vs. transplanted heart: [place] heart Associated angina: without angina Qualified Code(s): I25.10 - Atherosclerotic heart disease of [place] coronary artery without angina pectoris Discussion w patient/family: The assessment and plan as outlined above was discussed with the patient who expressed understanding and agreement. All questions were answered. Thank you for involving us in the care of your patient. Please call with any questions. Discussed and reviewed with . Subjective Principal diagnosis: atrial fibrillation with RVR Interval history: Patient stats he feels slightly better than yesterday. Denies chest pain. Patient states breathing is imrpoved today. Objective Vital Signs, Last 4 Hours Temp Pulse Resp BP Pulse Ox 04/12/17 07:23 98.1 F 134 18 108/68 93 General: Conversant, No Apparent Distress HEENT: Atraumatic, Normocephaly, Mucus Membranes Moist Neck: No JVD, Normal carotid pulses Cardiac: Normal S1 and S2, No Murmur, Other (Irregularly irregular. Tachycardic. ) Lungs: Normal Breath Sounds, No Wheeze, Rales, Rhonchi Neuro: Alert and responsive, No focal deficits noted Abdomen: Soft, Non-Tender Skin: No rashes noted on visualized skin Musculoskeletal: No Chest Wall Tenderness Extremities: No Clubbing, No Cyanosis, Normal Pulses, Other (1+ bilateral lower extremity pitting edema noted. ) Results 04/12/17 05:21 04/12/17 05:21 Lab Results Active Medications Acetaminophen (Tylenol) 650 mg PO Q6HR PRN PRN Reason: Mild Pain (1-3) Stop: 10/10/17 06:53 Last Admin: 04/12/17 08:07 Dose: 650 mg Albuterol/Ipratropium (Duoneb) 3 ml IH [id number] PRN PRN Reason: Wheezing Stop: 10/10/17 08:01 Apixaban (Eliquis) 5 mg PO BID [facility] Stop: 10/10/17 21:01 Last Admin: 04/12/17 08:04 Dose: 5 mg Aspirin (Aspirin Ec) 81 mg PO DAILY [facility] Stop: 10/11/17 09:01 Last Admin: 04/12/17 08:04 Dose: 81 mg Atorvastatin Calcium (Lipitor) 20 mg PO HS [facility] Stop: 10/10/17 21:01 Last Admin: 04/11/17 21:35 Dose: 20 mg Budesonide/Formoterol Fumarate (Symbicort) 2 puff IH BIDR KARIE PRN Reason: Protocol Stop: 10/12/17 10:01 Dextrose/Water (Dextrose 50% (Syg)) 25 ml IVP AD PRN PRN Reason: Hypoglycemia Stop: 10/10/17 10:52 Docusate Sodium (Colace) 100 mg PO BID PRN PRN Reason: Constipation Stop: 10/10/17 06:53 Furosemide (Lasix) 60 mg IVP BIDDIURETIC KARIE Stop: 10/12/17 17:01 Gabapentin (Neurontin) 600 mg PO TID [facility] Stop: 10/10/17 09:01 Last Admin: 04/12/17 08:04 Dose: 600 mg Glucagon (Glucagen) 1 mg IM ONCE PRN PRN Reason: Hypoglycemia Stop: 10/10/17 10:52 Glucose (Gluctose) 15 gm PO ONCE PRN PRN Reason: Hypoglycemia Stop: 10/10/17 10:52 Glucose (Gluctose) 30 gm PO ONCE PRN PRN Reason: Hypoglycemia Stop: 10/10/17 10:52 Diltiazem HCl 125 mg/ Dextrose 125 mls @ 10 mls/hr IVC .[id number] KARIE; 10 MG/HR PRN Reason: Protocol Stop: 10/10/17 07:01 Last Admin: 04/12/17 03:58 Dose: 15 mg/hr, 15 mls/hr Dextrose (Dextrose 5%) 1,000 mls @ 100 mls/hr IVC .Q10H PRN PRN Reason: HYPOGLYCEMIA Stop: 10/10/17 10:52 Insulin Detemir (Levemir) 60 unit SQ HS [facility] Stop: 10/11/17 09:11 Last Admin: 04/11/17 21:37 Dose: 60 unit Insulin Human Lispro (Humalog) 0 units SQ HS [facility]IE PRN Reason: Protocol Stop: 10/10/17 21:01 Last Admin: 04/11/17 21:36 Dose: 5 units Insulin Human Lispro (Humalog) 0 units SQ TIDAC [facility] PRN Reason: Protocol Stop: 10/10/17 11:31 Last Admin: 04/12/17 08:08 Dose: 10 units Lisinopril (Zestril) 10 mg PO DAILY KARIE PRN Reason: Protocol Stop: 10/10/17 09:01 Last Admin: 04/12/17 08:04 Dose: 10 mg Metoprolol Succinate (Toprol Xl) 100 mg PO BID [facility] Stop: 10/11/17 09:01 Last Admin: 04/12/17 08:04 Dose: 100 mg Metoprolol Tartrate (Lopressor) 5 mg IVP Q6HR PRN PRN Reason: tachycardia Stop: 10/10/17 07:20 Last Admin: 04/12/17 06:37 Dose: 5 mg Naloxone HCl (Narcan) 0.4 mg IVP Q2MIN PRN PRN Reason: Opioid Reversal Stop: 10/10/17 06:53 Oxycodone HCl (Roxicodone) 5 mg PO Q6HR PRN PRN Reason: Moderate Pain (4-6) Stop: 10/10/17 06:53 Last Admin: 04/12/17 06:43 Dose: 5 mg Laboratory Tests 04/12/17 04/12/17 05:21 05:21 Hgb 14.3 Potassium 3.6 Creatinine 0.87 - Imaging and Cardiology Chest Xray: report reviewed - EKG Interpretation EKG results cardiology: other (Telemetry reviewed with average HR previous 12 hours noted to be 130, atrial flutter. PVCs noted.) Consult Discharge Plan - Plan Referrals: Candelaria Gifford, FREEZING MACHINE OPERATOR [Primary Care Provider] -
[2017-04-12] MEDS ORDERED: *HR* Digoxin 0.5 MG/2 ML AMPUL IVP ONE (10:58)
--- NOTE | 2017-04-12 15:41 | Internal Med Progress Note ---
<Gaviota Clark - Last Filed: 04/12/17 16:44> Date of Encounter: 04/12/17 Time of Encounter: 11:40 - Assessment and plan (1) Atrial fibrillation and flutter Current Visit: Yes Status: Acute Assessment and plan: -ECG with atrial flutter with RVR, HR in 130s this morning per nurse. Episode of Afib overnight. -CHADVASC of 3 (HTN, vascular disease, DM), on eliquis -ON beta miles and cardizem drip at 15mg/hour. -Echo pending Cardio on consult, appreciate recs Per Dr. Loera, pt to receive IV digoxin load. Pt NPO after midnight for possible BHAVANI/cardioversion. . (2) Atrial flutter with rapid ventricular response Current Visit: Yes Status: Acute Assessment and plan: Cardio on consult, appreciate recs. See above (3) DVT prophylaxis Current Visit: Yes Status: Acute Assessment and plan: Eliquis (4) Congestive heart failure Current Visit: No Status: Acute Assessment and plan: Fluid restriction Monitor I/O closely No SOB. Edema +1/ b/l See cardio consult note for specific detail Qualifiers: Congestive heart failure type: unspecified congestive heart failure type Congestive heart failure chronicity: acute Qualified Code(s): I50.9 - Heart failure, unspecified - Time Spent With Patient 25 - 35 minutes - Subjective Interval history: Pt seen and evaluated. No complaints of SOB. No Chest pain. Patient resting comfortably at time of interview. - Constitutional Vitals: Temp Pulse Resp BP Pulse Ox 97.5 F L 137 18 114/87 93 04/12/17 11:29 04/12/17 11:29 04/12/17 11:29 04/12/17 11:29 04/12/17 11:29 General appearance: Present: cooperative, mild distress, A&O X 3, pleasant, no acute distress, obese - Head Head exam: Present: atraumatic, normocephalic - Respiratory Respiratory exam: Present: CTAB. Absent: accessory muscle use, rales, rhonchi, wheezes - Cardiovascular Cardiovascular exam: Present: +S1, +S2. Absent: diastolic murmur, gallop, rubs , systolic murmur - GI/Abdominal GI/Abdominal exam: Present: normal bowel sounds, soft. Absent: distended, tenderness - Extremities Exam Extremities exam: Present: pedal edema (+1 b/l. ), warm. Absent: calf tenderness, cyanotic Internal Medicine: Result - Labs CBC & Chem 7: 04/12/17 05:21 04/12/17 05:21 Labs: Short CBC 04/12/17 Range/Units 05:21 WBC 10.7 (4.3-11.1) K/mcL Hgb 14.3 (12.9-16.9) g/dL Hct 45.6 (37.5-50.1) % Plt Count 308 (140-400) K/mcL Neutrophils # 8.0 (1.6-8.9) K/mcL BMP 04/12/17 05:21 Sodium 141 Potassium 3.6 Chloride 100 Carbon Dioxide 31 H BUN 24 Creatinine 0.87 Glucose 267 H Calcium 9.0 Consult Discharge Plan - Plan Referrals: Cnadelaria Gifford WORKERS' COMPENSATION COMMISSIONER [Primary Care Provider] - <Mat Watt - Last Filed: 04/12/17 18:31> Date of Encounter: 04/12/17 - Constitutional Vitals: Temp Pulse Resp BP Pulse Ox 98.2 F 109 18 110/79 95 04/12/17 16:39 04/12/17 16:39 04/12/17 16:39 04/12/17 16:39 04/12/17 16:39 Internal Medicine: Result - Labs CBC & Chem 7: 04/12/17 05:21 04/12/17 05:21 Labs: Short CBC 04/12/17 Range/Units 05:21 WBC 10.7 (4.3-11.1) K/mcL Hgb 14.3 (12.9-16.9) g/dL Hct 45.6 (37.5-50.1) % Plt Count 308 (140-400) K/mcL Neutrophils # 8.0 (1.6-8.9) K/mcL BMP 04/12/17 05:21 Sodium 141 Potassium 3.6 Chloride 100 Carbon Dioxide 31 H BUN 24 Creatinine 0.87 Glucose 267 H Calcium 9.0 - Attending Attestation I examined this patient and my medical decision-making was reviewed with the Resident Physician. I agree with the documented findings, disposition and treatment plan as described except to the extent set forth below.
--- NOTE | 2017-04-12 17:27 | Electrocardiograph Report ---
[address] [address] Test Date: 2017-04-10 Pat Name: Daniel Almodovar Department: 112 Room: 2A45 Gender: M Rehabilitation Aide/Scheduler: THOMAS : 1960 Requested By: Hunter Castro Order Number: [id number] Reading MD: Neda Benton Measurements Intervals [place] Rate: 125 P: [place]: 0 QRS: -59 QRSD: 108 T: -79 QT: 292 QTc: 366 Interpretive Statements ATRIAL FLUTTER/TACHYCARDIA WITH RAPID VENTRICULAR RESPONSE POSSIBLE ANTERIOR MYOCARDIAL INFARCTION, OF INDETERMINATE AGE INFERIOR MYOCARDIAL INFARCTION, INDETERMINATE AGE Electronically Signed On 04-12-2017 17:26:08 EDT by Neda Benton
[2017-04-12] MEDS: *HR* Digoxin 0.5 MG/2 ML AMPUL IVP SCH ×2 (17:43→23:08)
[2017-04-12] MEDS: Insulin DETEMIR 100 UNIT/ML X5UNITS SQ SCH (23:08)
[2017-04-13] MEDS ORDERED: 0.9 % Sodium Chloride 250 ML ONE (07:36)
[2017-04-13] MEDS: Budesonide/Formoterol 160/4.5 MDI IH SCH ×2 (07:55→20:02)
[2017-04-13] MEDS: Insulin DETEMIR 100 UNIT/ML X5UNITS SQ SCH ×2 (08:54→21:17)
[2017-04-13] MEDS: Furosemide 40 MG/4 ML VIAL IVP SCH ×2 (08:56→16:26)
--- NOTE | 2017-04-13 10:16 | Event Note ---
Date of Encounter: 04/13/17 Time of Encounter: 09:00 - Cardiology Event Note Patient with atrial fibrillation RVR, average HR previous 12 hours noted to be 104. On cardizem drip at 15mg/hour, toprol 100mg BID, and was given IV digoxin load yesterday. Per discussion with , will start po digoxin and proceed with BHAVANI/DCCV. Will need BHAVANI due to only on anticoagulation for 2 weeks. Risks versus benefits of BHAVANI/DCCV explained to patient. Patient states understanding and agreeable to proceed. Further recommendations pending BHAVANI/DCCV.
[2017-04-13] MEDS: *HR* Digoxin 0.125 MG TABLET PO SCH (10:45)
[2017-04-13] MEDS ORDERED: Tetracaine/Benzocaine/Butamben 200MG/SPRAY (100SPY/BOT) MM ONE (12:53)
[2017-04-13] MEDS ORDERED: 0.9 % Sodium Chloride 500 ML IVC ONE (12:53)
[2017-04-13] MEDS: *HR* FentaNYL (PF) 100 MCG/2 ML VIAL IVP PRN ×3 (13:50→14:09)
[2017-04-13] MEDS: *HR* Midazolam HCl 5 MG/5 ML VIAL IVP PRN ×3 (13:50→14:09)
--- NOTE | 2017-04-13 14:44 | Internal Med Progress Note ---
Date of Encounter: 04/13/17 Time of Encounter: 10:20 - Assessment and plan (1) Atrial fibrillation and flutter Current Visit: Yes Status: Acute Assessment and plan: Patient continued to have rapid ventricular response and varying between atrial fibrillation and atrial flutter. Plan for BHAVANI and cardioversion later today. On anticoagulation with Eliquis. Received digoxin and is currently on intravenous diltiazem drip. High risk for complications. (2) Atrial fibrillation with RVR Current Visit: No Status: Acute (3) Atrial flutter with rapid ventricular response Current Visit: Yes Status: Acute (4) Congestive heart failure Current Visit: Yes Status: Acute Assessment and plan: Improving. Continue IV Lasix. Patient having good urine output. Negative fluid balance since admission. Continue fluid restriction. Cardiology following. Qualifiers: Congestive heart failure type: diastolic Congestive heart failure chronicity: acute on chronic Qualified Code(s): I50.33 - Acute on chronic diastolic (congestive) heart failure (5) COPD (chronic obstructive pulmonary disease) Current Visit: Yes Status: Chronic Assessment and plan: On bronchodilators as needed. Not in acute exacerbation. Qualifiers: COPD type: chronic bronchitis Chronic bronchitis type: simple Qualified Code(s): J41.0 - Simple chronic bronchitis - Subjective Interval history: Patient is sitting up in chair. Awaiting to be taken for D and possible cardioversion. Patient continued to have rapid ventricular response. Denies any chest pain. No dizziness or lightheadedness. No abdominal pain nausea or vomiting. - Constitutional Vitals: Temp Pulse Resp BP Pulse Ox 98.1 F 129 24 121/88 91 04/13/17 13:33 04/13/17 13:33 04/13/17 13:33 04/13/17 13:33 04/13/17 13:33 General appearance: Present: cooperative, mild distress, A&O X 3, pleasant, no acute distress, obese - Neck Neck exam general surgery: Present: supple, trachea midline. Absent: lymphadenopathy - Respiratory Respiratory exam: Present: CTAB. Absent: accessory muscle use, rales, rhonchi, wheezes - Cardiovascular Cardiovascular exam: Present: irregular rhythm, +S1, +S2, tachycardia. Absent: diastolic murmur, gallop, rubs, systolic murmur - GI/Abdominal GI/Abdominal exam: Present: normal bowel sounds, soft, no peritoneal signs. Absent: distended, tenderness Internal Medicine: Result - Labs CBC & Chem 7: 04/12/17 05:21 04/12/17 05:21 Consult Discharge Plan - Plan Referrals: Candelaria Gifford CNP [Primary Care Provider] - 04/20/17 1:30 pm (Please follow up as schedule...)
[2017-04-13] MEDS ORDERED: Insulin LISPRO 300 UNITS/3 ML VIAL SQ SCH (15:04)
[2017-04-13] MEDS: APIXABAN 5 MG TABLET PO SCH ×2 (15:28→21:17)
[2017-04-13] MEDS: Aspirin Enteric Coated 81 MG Tablet PO SCH (15:28)
[2017-04-13] MEDS: Gabapentin 300 MG CAPSULE PO SCH ×3 (15:29→21:17)
[2017-04-13] MEDS: Metoprolol XL (24 HR) Succ 50 MG TAB.ER.24H PO SCH ×2 (15:56→21:17)
--- NOTE | 2017-04-13 15:58 | Event Note ---
Date of Encounter: 04/13/17 Time of Encounter: 15:53 - Cardiology Event Note Patient seen after BHAVANI/DCCV. Pateint currently sinus rhythm HR 80s, on cardizem drip at 15mg/hour. Will stop cardizem drip, will start cardizem CD 360mg. BP 120s systolic. Free 30 day eliquis card given to patient. If patient's gag reflex has returned, ok to eat. Cardiology will sign off. Pateint requesting to follow with [facility]. Follow up set.
[2017-04-13] MEDS: Diltiazem CD (24hr) 180 MG CAPSULE PO SCH (16:25)
[2017-04-13] MEDS: Insulin LISPRO 300 UNITS/3 ML VIAL SQ SCH (16:27)
--- NOTE | 2017-04-13 17:12 | Electrocardiograph Report ---
[address] [place], [place] [address] Test Date: 2017-04-13 Pat Name: Daniel Almodovar Department: 101 Room: 2A45 Gender: M Rug Cleaning Supervisor: KAMALJIT : 1960 Requested By: Niecy Vidal Order Number: [id number] Reading MD: Carmen Larsen Measurements Intervals [place] Rate: 78 P: 40 CT: 164 QRS: -47 QRSD: 108 T: 97 QT: 392 QTc: 425 Interpretive Statements SINUS RHYTHM WITH OCCASIONAL VENTRICULAR PREMATURE COMPLEXES POSSIBLE ANTERIOR MYOCARDIAL INFARCTION, OF INDETERMINATE AGE INFERIOR MYOCARDIAL INFARCTION, PROBABLY OLD Electronically Signed On 04-13-2017 17:10:17 EDT by Carmen Larsen
[2017-04-14] MEDS: Budesonide/Formoterol 160/4.5 MDI IH SCH (07:40)
[2017-04-14] MEDS ORDERED: Furosemide 40 MG TABLET PO SCH (08:00)
[2017-04-14] MEDS: Aspirin Enteric Coated 81 MG Tablet PO SCH (08:29)
[2017-04-14] MEDS: Metoprolol XL (24 HR) Succ 50 MG TAB.ER.24H PO SCH (08:29)
[2017-04-14] MEDS: Insulin DETEMIR 100 UNIT/ML X5UNITS SQ SCH (08:29)
[2017-04-14] MEDS: APIXABAN 5 MG TABLET PO SCH (08:29)
[2017-04-14] MEDS: Diltiazem CD (24hr) 180 MG CAPSULE PO SCH (08:29)
[2017-04-14] MEDS: *HR* Digoxin 0.125 MG TABLET PO SCH (08:29)
[2017-04-14] MEDS: Gabapentin 300 MG CAPSULE PO SCH (08:29)
[2017-04-14] MEDS: Insulin LISPRO 300 UNITS/3 ML VIAL SQ SCH ×2 (08:30→11:37)
[2017-04-14 11:21] VITALS: BP 114/77
--- NOTE | 2017-04-14 11:47 | Discharge Summary ---
Date of Encounter: 04/14/17 Time of Encounter: 11:39 - Discharge Diagnosis (1) Acute congestive heart failure Priority: Primary Status: Acute Qualifiers: Congestive heart failure type: diastolic Qualified Code(s): I50.31 - Acute diastolic (congestive) heart failure (2) Atrial fibrillation with RVR Priority: Primary Status: Acute (3) Coronary artery disease Priority: Secondary Status: Chronic Qualifiers: Coronary Disease-Associated Artery/Lesion type: [place] artery [place] vs. transplanted heart: [place] heart Associated angina: without angina Qualified Code(s): I25.10 - Atherosclerotic heart disease of [place] coronary artery without angina pectoris (4) Morbid obesity Priority: Secondary Status: Chronic (5) Obstructive sleep apnea Priority: Secondary Status: Chronic (6) Type 2 diabetes mellitus Priority: Secondary Status: Chronic Qualifiers: Diabetes mellitus complication status: with circulatory complication Diabetes mellitus complication detail: with other circulatory complications Diabetes mellitus longterm insulin use: with longterm use Qualified Code(s) : E11.59 - Type 2 diabetes mellitus with other circulatory complications; Z79.4 - detention (current) use of insulin (7) COPD (chronic obstructive pulmonary disease) Priority: Secondary Status: Chronic Qualifiers: COPD type: chronic bronchitis Chronic bronchitis type: simple Qualified Code(s): J41.0 - Simple chronic bronchitis - Discharge Medications Prescriptions: Digoxin [Lanoxin] 0.125 mg PO DAILY #30 tab Diltiazem CD (24hr) [Cardizem CD] 360 mg PO DAILY #30 Docusate [Colace] 100 mg PO BID PRN #60 PRN Reason: Constipation Furosemide [Lasix] 40 mg PO BIDDIURETIC #60 tab glipiZIDE [Glipizide] 10 mg PO DAILY #60 Metoprolol XL (24 HR) Succ [Toprol Xl] 100 mg PO BID #60 Home Medications: Atorvastatin [Lipitor] 20 mg PO HS 06/06/15 [History] Lisinopril [Zestril] 10 mg PO DAILY 06/06/15 [History] metFORMIN [Glucophage] 1,000 mg PO BID 06/06/15 [History] Insulin Glargine,Hum.rec.anlog [Lantus Solostar] 70 unit SQ HS 10/15/15 [History ] Potassium Chloride [K-Tab ER] 20 meq PO BID 10/15/15 [History] Apixaban [Eliquis] 5 mg PO BID 04/10/17 [History] Fluticasone/Vilanterol [Breo Ellipta 200-25 Mcg INH] 1 puff IH DAILY 04/10/17 [ History] Gabapentin [Neurontin] 800 mg PO TID 04/10/17 [History] Ipratropium/Albuterol Sulfate [Combivent Respimat Inhal [place]] 1 puff IH QID [History] Tiotropium [Spiriva] 18 mcg IH DAILY 04/10/17 [History] Aspirin Enteric Coated [Aspirin EC] 81 mg PO DAILY 04/14/17 [Rx] Digoxin [Lanoxin] 0.125 mg PO DAILY #30 tab 04/14/17 [Rx] Diltiazem CD (24hr) [Cardizem CD] 360 mg PO DAILY #30 04/14/17 [Rx] Docusate [Colace] 100 mg PO BID PRN #60 04/14/17 [Rx] Furosemide [Lasix] 40 mg PO BIDDIURETIC #60 tab 04/14/17 [Rx] Metoprolol XL (24 HR) Succ [Toprol Xl] 100 mg PO BID #60 04/14/17 [Rx] glipiZIDE [Glipizide] 10 mg PO DAILY #60 04/14/17 [Rx] Allergies/Adverse Reactions: 3 Allergy/AdvReac Type Severity Reaction Status Date / Time No Known Allergies Allergy Verified 04/10/17 03:16 Procedures/tests Complete & Pending: Procedures Performed prior 72 hours Category Date Time Status ECG 12 lead ECG [ECG] Routine Y 04/13/17 14:17 Completed EV regla guided cardioversion Routine Y 04/13/17 09:58 Completed Date of admission: 04/10/17 06:52 Primary care physician: Candelaria Gifford CNP Consults: 04/10/17 06:55 Consult to Physician [CONS] Routine Consulting Provider: Miki Albarran Reason for Consult: CHF exacerbation, A. fib RVR Call Completed: No Discharging clinician: Trino Pinto Anticipated date of discharge: 04/14/17 - Patient Status Disposition: Home, Self-Care Condition: Fair Functional capacity at discharge: independent ambulation Overall status at discharge: patient is back to baseline - Discharge Instructions Instructions: Metoprolol (By mouth), Diltiazem (By mouth), Digoxin (By mouth), Furosemide (By mouth), Glipizide (By mouth) Follow Up With: Candelaria Gifford CNP [Primary Care Provider] - 04/20/17 1:30 pm (Please follow up as schedule...) - Diet and Activity Activity: resume usual activities as tolerated Diet: diabetic diet, low fat, low cholesterol, low salt diet Interval History: See below Hospital course: Mr. Almodovar is a 56 YO M admitted and managed for Afib with RVR s/p REGLA/DC cardioversion on 04/13/17, on anticoagulation with ERIC-Eliquis, He also has Morbid Obesity with BMI 48.8, Uncontrolled DM with A1C 9.6, and COPD not in exacerbation, CHFpEF He is seen this morning with no complains HR has been controlled since cardioversion, BP is WNL. He is also on Digoxin I/O cumulative is -4.2L and patient has lost ~10kg since admission. His ECHO done in this admission did not report EF, however showed no thrombus, prior ECHO in 2014 with EF 50% and moderate LVDD. TSH was WNL and his electrolytes have been acceptable, he however has hyperglycemia.He is on insulin and oral hypoglycemic agents at home. He denies new complains this morning, his physical exam revealed regressing pedal edema-trace, chest is clear, his HR and BP have been controlled, he is in no form of distress and is ambulatory. He is clinically stable to be discharged home. He was educated about his DM control, and plan to increase his Glipizide. He is also educated about his new cardiac medications-Toprol, Cardizem, Digoxin , Lasix. He understands need for compliance and follow up. He has a follow up with his PCP this week. - Time Spent with Patient Total time spent providing and/or coordinating discharge services: Greater than 30 minutes - Constitutional Vitals: Temp Pulse Resp BP Pulse Ox 98.3 F 79 18 114/77 92 04/14/17 11:19 04/14/17 11:19 04/14/17 11:19 04/14/17 11:19 04/14/17 11:19 General appearance: Present: cooperative, A&O X 3, pleasant, no acute distress, obese - Head Head exam: Present: atraumatic, normocephalic - Eye Eye exam: Present: PERRL, conjuntiva pink, sclera anicteric Pupils: Present: PERRL - Neck Neck exam general surgery: Present: supple, trachea midline. Absent: lymphadenopathy - Respiratory Respiratory exam: Present: CTAB. Absent: accessory muscle use, rales, rhonchi, wheezes - Cardiovascular Cardiovascular exam: Present: RRR, +S1, +S2. Absent: diastolic murmur, gallop, rubs, systolic murmur - GI/Abdominal GI/Abdominal exam: Present: normal bowel sounds, soft, no peritoneal signs. Absent: distended, tenderness - Extremities Exam Extremities exam: Present: warm, radial pulses palpable and symmetrical. Absent : calf tenderness, cyanotic, pedal edema - Neurological Exam Neurological exam: Present: alert, CN II-XII intact, normal gait, oriented X3, no focal deficits. Absent: pronater drift, facial droop, speech deficit - Skin Skin exam: Present: dry, intact
[2017-04-14] MEDS ORDERED: Insulin LISPRO 300 UNITS/3 ML VIAL SQ SCH (17:00)
== END 2017-04-14 12:25 | disposition home or self-care (01) | DRG 308 ==
LOC: 2ANU → SUATTDRO 06:52 → 2ANU 10:41
PROVIDERS: ADMIT Internal Medicine; ATTEND Internal Medicine

== ENCOUNTER 2019-03-13 11:26 | Inpatient (IN) ==
[2019-03-13] MEDS ORDERED: Aspirin 81 MG TAB.CHEW PO ONE (11:42)
[2019-03-13 11:54] LABS: Basophils # 0.1 K/mcL (0.0-0.2); Basophils % 0.7 %; Eosinophils # 0.1 K/mcL (0.0-0.6); Eosinophils % 1.4 %; Hematocrit 47.4 % (37.5-50.1); Hemoglobin 15.7 g/dL (12.9-16.9); Lymphocytes # 1.8 K/mcL (0.6-4.6); Mean Corpuscular HGB Conc 33.1 g/dL (31.6-35.5); Mean Corpuscular Hemoglobin 28.6 pg (28.0-33.3); Mean Corpuscular Volume 86.3 fL (83.0-100.0); Mean Platelet Volume 8.9 fL (9.4-12.4); Monocytes % 10.7 %; Neutrophils # 6.2 K/mcL (1.6-8.9); Platelet Count 277 K/mcL (140-400); Red Blood Count 5.49 M/mcL (4.19-5.50); Red Cell Distribution Width 15.7 % (11.5-14.5); Segmented Neutrophils % 67.2 %; White Blood Count 9.2 K/mcL (4.3-11.1)
[2019-03-13 12:06] LABS: INR 2.5; Prothrombin Time 28.4 Seconds (9.4-12.1)
[2019-03-13 12:09] LABS: Activated Partial Thrombo Time 40.8 Seconds (26.0-36.0)
[2019-03-13 12:11] LABS: BUN/Creatinine Ratio 17 (6-26); Blood Urea Nitrogen 16 mg/dL (6-20); Calcium 9.6 mg/dL (8.6-10.3); Carbon Dioxide 24 mEq/L (23-29); Chloride 95 mEq/L (98-107); Glucose 344 mg/dL (70-105); Osmolality,Calculated 291 (280-300); Potassium 4.1 mEq/L (3.5-5.1); Sodium 133 mEq/L (136-145); Troponin I < 0.03 ng/mL (< 0.04); eGFR For African Americans > 60 (> 60); eGFR For Non-African Americans > 60 (> 60)
[2019-03-13] MEDS ORDERED: Nitroglycerin 0.4 MG TAB.SUBL SL PRN (13:17)
[2019-03-13] MEDS ORDERED: Acetaminophen 325 MG TABLET PO PRN (13:50)
[2019-03-13] MEDS ORDERED: *HR* HYDROcodone/Acet 5/325 mg TABLET PO PRN (13:50)
[2019-03-13] MEDS ORDERED: Naloxone 0.4 MG/ML INJ IVP PRN (13:50)
[2019-03-13] MEDS ORDERED: Ondansetron 4 MG/2 ML VIAL IVP PRN (13:50)
[2019-03-13] MEDS ORDERED: D5% in Water 1,000 ML IVC PRN (16:08)
[2019-03-13] MEDS ORDERED: *HR* Dextrose 50 % in Water (Syg) 50 ML SYRINGE IVP PRN (16:08)
[2019-03-13] MEDS ORDERED: Dextrose Gel 15 GM/37.5 ML TUBE PO PRN ×2 (16:08)
[2019-03-13] MEDS ORDERED: Furosemide 40 MG TABLET PO SCH (17:00)
[2019-03-13] MEDS ORDERED: Insulin LISPRO 300 UNITS/3 ML VIAL SQ SCH (17:00)
[2019-03-13 17:31] LABS: Estimated Average Glucose 272 mg/dl
[2019-03-13] MEDS ORDERED: Warfarin perPT PO PRN (18:00)
[2019-03-13] MEDS: Gabapentin 300 MG CAPSULE PO SCH ×2 (18:00→21:22)
[2019-03-13] MEDS: ceFAZolin 1,000 MG in Water for inj. (sterile) 10 ML IVP SCH ×2 (18:01→23:43)
[2019-03-13] MEDS: Furosemide 40 MG/4 ML VIAL IVP SCH ×2 (18:01→23:42)
[2019-03-13] MEDS: Insulin LISPRO 300 UNITS/3 ML VIAL SQ SCH ×2 (18:01→21:23)
[2019-03-13] MEDS: Insulin DETEMIR 100 UNIT/ML X5UNITS SQ SCH (21:22)
[2019-03-14 05:49] LABS: Hematocrit 46.9 % (37.5-50.1); Hemoglobin 15.5 g/dL (12.9-16.9); Mean Corpuscular Volume 87.7 fL (83.0-100.0); Mean Platelet Volume 8.7 fL (9.4-12.4); Platelet Count 237 K/mcL (140-400); Red Blood Count 5.35 M/mcL (4.19-5.50); Red Cell Distribution Width 15.7 % (11.5-14.5); White Blood Count 7.2 K/mcL (4.3-11.1)
[2019-03-14 05:59] LABS: INR 2.9; Prothrombin Time 32.6 Seconds (9.4-12.1)
[2019-03-14 06:12] LABS: BUN/Creatinine Ratio 21 (6-26); Blood Urea Nitrogen 16 mg/dL (6-20); Calcium 9.4 mg/dL (8.6-10.3); Carbon Dioxide 27 mEq/L (23-29); Chloride 97 mEq/L (98-107); Chol/HDL Ratio 3.6 (0-4.9); Cholesterol 138 mg/dL (< 200); Glucose 185 mg/dL (70-105); HDL Cholesterol 38 mg/dL (40-59); LDL Cholesterol,Calculated 64 mg/dL (0-99); Magnesium 1.9 mg/dL (1.6-2.6); Osmolality,Calculated 288 (280-300); Potassium 3.5 mEq/L (3.5-5.1); Sodium 136 mEq/L (136-145); Triglycerides 182 mg/dL (< 150); eGFR For African Americans > 60 (> 60); eGFR For Non-African Americans > 60 (> 60)
[2019-03-14] MEDS: Furosemide 40 MG/4 ML VIAL IVP SCH ×2 (10:42→17:43)
[2019-03-14] MEDS: DilTIAZem CD (24hr) 180 MG CAP.ER.24H PO SCH (10:42)
[2019-03-14] MEDS: Gabapentin 300 MG CAPSULE PO SCH ×3 (10:42→21:35)
[2019-03-14] MEDS: ceFAZolin 1,000 MG in Water for inj. (sterile) 10 ML IVP SCH ×2 (10:43→17:39)
[2019-03-14] MEDS: Insulin LISPRO 300 UNITS/3 ML VIAL SQ SCH ×4 (10:44→21:35)
[2019-03-14] MEDS: Insulin DETEMIR 100 UNIT/ML X5UNITS SQ SCH ×2 (10:54→21:35)
[2019-03-14] MEDS: Aspirin Enteric Coated 81 MG Tablet PO SCH (17:40)
[2019-03-14] MEDS ORDERED: *HR* Warfarin 2.5 MG TABLET PO ONE (18:00)
[2019-03-14] MEDS ORDERED: *HR* Warfarin 5 MG TABLET PO ONE (18:00)
[2019-03-14] MEDS ORDERED: Perflutren Lipid Microsphere 1.3 ML in 0.9 % Sodium Chloride 8.7 ML IVP ONE (18:30)
[2019-03-15] MEDS: ceFAZolin 1,000 MG in Water for inj. (sterile) 10 ML IVP SCH ×4 (00:11→23:31)
[2019-03-15 02:24] LABS: INR 2.2; Prothrombin Time 24.8 Seconds (9.4-12.1)
[2019-03-15 02:37] LABS: BUN/Creatinine Ratio 23 (6-26); Blood Urea Nitrogen 19 mg/dL (6-20); Carbon Dioxide 25 mEq/L (23-29); Chloride 94 mEq/L (98-107); Glucose 366 mg/dL (70-105); Magnesium 2.1 mg/dL (1.6-2.6); Osmolality,Calculated 287 (280-300); Potassium 3.2 mEq/L (3.5-5.1); Sodium 130 mEq/L (136-145); eGFR For African Americans > 60 (> 60); eGFR For Non-African Americans > 60 (> 60)
[2019-03-15] MEDS: Furosemide 40 MG/4 ML VIAL IVP SCH ×2 (05:35→17:24)
[2019-03-15] MEDS: DilTIAZem CD (24hr) 180 MG CAP.ER.24H PO SCH (08:05)
[2019-03-15] MEDS: Metoprolol XL (24 HR) Succ 50 MG TAB.ER.24H PO SCH (08:05)
[2019-03-15] MEDS: Gabapentin 300 MG CAPSULE PO SCH ×3 (08:05→21:07)
[2019-03-15] MEDS: Aspirin Enteric Coated 81 MG Tablet PO SCH (08:05)
[2019-03-15] MEDS: Insulin LISPRO 300 UNITS/3 ML VIAL SQ SCH ×4 (08:12→21:06)
[2019-03-15] MEDS: Insulin DETEMIR 100 UNIT/ML X5UNITS SQ SCH ×2 (08:17→21:08)
[2019-03-15] MEDS ORDERED: Insulin LISPRO 300 UNITS/3 ML VIAL SQ SCH (17:00)
[2019-03-15] MEDS ORDERED: *HR* Warfarin 5 MG TABLET PO ONE (18:00)
[2019-03-16 01:59] LABS: INR 1.7
[2019-03-16] MEDS: Insulin LISPRO 300 UNITS/3 ML VIAL SQ SCH ×5 (02:08→21:02)
[2019-03-16 02:10] LABS: BUN/Creatinine Ratio 23 (6-26); Blood Urea Nitrogen 18 mg/dL (6-20); Calcium 9.1 mg/dL (8.6-10.3); Carbon Dioxide 26 mEq/L (23-29); Chloride 98 mEq/L (98-107); Glucose 291 mg/dL (70-105); Osmolality,Calculated 289 (280-300); Potassium 3.9 mEq/L (3.5-5.1); Sodium 133 mEq/L (136-145); eGFR For African Americans > 60 (> 60); eGFR For Non-African Americans > 60 (> 60)
[2019-03-16] MEDS: Furosemide 40 MG/4 ML VIAL IVP SCH (05:57)
[2019-03-16] MEDS: Aspirin Enteric Coated 81 MG Tablet PO SCH (08:52)
[2019-03-16] MEDS: ceFAZolin 1,000 MG in Water for inj. (sterile) 10 ML IVP SCH ×2 (08:52→15:02)
[2019-03-16] MEDS: DilTIAZem CD (24hr) 180 MG CAP.ER.24H PO SCH (08:52)
[2019-03-16] MEDS: Gabapentin 300 MG CAPSULE PO SCH ×3 (08:52→20:58)
[2019-03-16] MEDS: Metoprolol XL (24 HR) Succ 50 MG TAB.ER.24H PO SCH (08:52)
[2019-03-16] MEDS: Insulin DETEMIR 100 UNIT/ML X5UNITS SQ SCH ×2 (08:57→20:59)
[2019-03-16] MEDS ORDERED: Heparin 1,000 UNITS/500 mL 500 ML ONE (12:24)
[2019-03-16] MEDS ORDERED: Nitroglycerin 1,000 MCG/10 ML VIAL IV ONE (12:24)
[2019-03-16] MEDS ORDERED: ISOVUE-370 200 ML INFUS..BTL ONE ×2 (12:24→14:00)
[2019-03-16] MEDS ORDERED: *HR* Heparin 10,000 UNIT/10 ML VIAL ONE (12:24)
[2019-03-16] MEDS ORDERED: 0.9 % Sodium Chloride 1,000 ML ONE (12:24)
[2019-03-16] MEDS ORDERED: *HR* Midazolam HCl 2 MG/2 ML VIAL ONE (13:14)
[2019-03-16] MEDS ORDERED: Verapamil 5 MG/2 ML VIAL ONE (13:21)
[2019-03-16] MEDS ORDERED: carvediloL 6.25 MG TABLET PO SCH (17:00)
[2019-03-16] MEDS ORDERED: *HR* Warfarin 5 MG TABLET PO ONE (18:00)
[2019-03-16] MEDS ORDERED: Warfarin perPT PO PRN (18:00)
[2019-03-17] MEDS: ceFAZolin 1,000 MG in Water for inj. (sterile) 10 ML IVP SCH ×2 (00:32→08:31)
[2019-03-17 05:05] LABS: Basophils # 0.1 K/mcL (0.0-0.2); Basophils % 0.8 %; Eosinophils # 0.2 K/mcL (0.0-0.6); Eosinophils % 2.5 %; Immature Granulocytes % 0.8 % (0-4); Lymphocytes # 1.1 K/mcL (0.6-4.6); Lymphocytes % 18.8 %; Mean Corpuscular HGB Conc 32.6 g/dL (31.6-35.5); Mean Corpuscular Hemoglobin 28.7 pg (28.0-33.3); Mean Platelet Volume 8.8 fL (9.4-12.4); Monocytes # 0.8 K/mcL (0.0-1.3); Neutrophils # 3.8 K/mcL (1.6-8.9); Platelet Count 239 K/mcL (140-400); Red Blood Count 5.23 M/mcL (4.19-5.50); Red Cell Distribution Width 15.9 % (11.5-14.5); Segmented Neutrophils % 64.1 %; White Blood Count 5.9 K/mcL (4.3-11.1)
[2019-03-17 05:10] LABS: INR 1.3; Prothrombin Time 14.7 Seconds (9.4-12.1)
[2019-03-17 05:24] LABS: BUN/Creatinine Ratio 20 (6-26); Blood Urea Nitrogen 15 mg/dL (6-20); Calcium 9.2 mg/dL (8.6-10.3); Carbon Dioxide 26 mEq/L (23-29); Chloride 98 mEq/L (98-107); Glucose 233 mg/dL (70-105); Osmolality,Calculated 288 (280-300); Potassium 4.2 mEq/L (3.5-5.1); Sodium 135 mEq/L (136-145); eGFR For African Americans > 60 (> 60); eGFR For Non-African Americans > 60 (> 60)
[2019-03-17] MEDS: Insulin LISPRO 300 UNITS/3 ML VIAL SQ SCH ×2 (08:31→11:51)
[2019-03-17] MEDS: Metoprolol XL (24 HR) Succ 50 MG TAB.ER.24H PO SCH (08:34)
[2019-03-17] MEDS: DilTIAZem CD (24hr) 180 MG CAP.ER.24H PO SCH (08:34)
[2019-03-17] MEDS: Gabapentin 300 MG CAPSULE PO SCH (08:34)
[2019-03-17] MEDS: Insulin DETEMIR 100 UNIT/ML X5UNITS SQ SCH (08:51)
[2019-03-17] MEDS ORDERED: Aspirin 81 MG TAB.CHEW PO SCH (09:00)
[2019-03-17 11:25] VITALS: BP 119/84
[2019-03-17] MEDS ORDERED: *HR* Warfarin 5 MG TABLET PO ONE (18:00)
== END 2019-03-17 13:03 | disposition home or self-care (01) | DRG 247 ==
LOC: EMEROOARM 11:26 → 3BNU 11:26 → SUATTDRO 13:33 → 3BNU 14:11
PROVIDERS: ADMIT Internal Medicine Nephrology; ATTEND Family Medicine

== ENCOUNTER 2019-09-25 10:34 | Inpatient (IN) ==
[2019-09-25] MEDS ORDERED: Aspirin 81 MG TAB.CHEW PO ONE (11:04)
[2019-09-25] MEDS: Nitroglycerin 0.4 MG TAB.SUBL SL PRN ×2 (11:19→11:39)
[2019-09-25 11:21] LABS: Basophils # 0.1 K/mcL (0.0-0.2); Basophils % 0.9 %; Eosinophils # 0.2 K/mcL (0.0-0.6); Hematocrit 43.7 % (37.5-50.1); Hemoglobin 13.2 g/dL (12.9-16.9); Immature Granulocytes % 0.9 % (0-4); Lymphocytes % 12.1 %; Mean Corpuscular HGB Conc 30.2 g/dL (31.6-35.5); Mean Corpuscular Hemoglobin 23.2 pg (28.0-33.3); Mean Corpuscular Volume 76.9 fL (83.0-100.0); Mean Platelet Volume 9.1 fL (9.4-12.4); Monocytes # 0.9 K/mcL (0.0-1.3); Monocytes % 11.7 %; Neutrophils # 5.8 K/mcL (1.6-8.9); Platelet Count 346 K/mcL (140-400); Red Blood Count 5.68 M/mcL (4.19-5.50); Red Cell Distribution Width 19.1 % (11.5-14.5); Segmented Neutrophils % 72.4 %; White Blood Count 7.9 K/mcL (4.3-11.1)
[2019-09-25 11:23] LABS: INR 2.1; Prothrombin Time 23.9 Seconds (9.4-12.1)
[2019-09-25 11:25] LABS: D-Dimer < 215 ng/mLFEU (0-500)
[2019-09-25 11:26] LABS: Activated Partial Thrombo Time 35.2 Seconds (26.0-36.0)
[2019-09-25] MEDS ORDERED: Furosemide 40 MG/4 ML VIAL IVP ONE (11:53)
[2019-09-25 11:55] LABS: BUN/Creatinine Ratio 17 (6-26); Blood Urea Nitrogen 15 mg/dL (6-20); Calcium 8.9 mg/dL (8.6-10.3); Carbon Dioxide 20 mEq/L (23-29); Chloride 95 mEq/L (98-107); Glucose 493 mg/dL (70-105); Osmolality,Calculated 297 (280-300); Sodium 132 mEq/L (136-145); Troponin I < 0.03 ng/mL (< 0.04); eGFR For African Americans > 60 (> 60); eGFR For Non-African Americans > 60 (> 60)
[2019-09-25] MEDS ORDERED: Gabapentin 300 MG CAPSULE PO PRN (13:38)
[2019-09-25] MEDS ORDERED: *HR* Dextrose 50 % in Water (Syg) 50 ML SYRINGE IVP PRN (13:41)
[2019-09-25] MEDS ORDERED: Naloxone 0.4 MG/ML INJ IVP PRN (13:41)
[2019-09-25] MEDS ORDERED: Dextrose Gel 15 GM/37.5 ML TUBE PO PRN ×2 (13:41)
[2019-09-25] MEDS ORDERED: Acetaminophen 325 MG TABLET PO PRN (13:41)
[2019-09-25] MEDS ORDERED: Ondansetron ODT 4 MG TAB.RAPDIS SL PRN (13:41)
[2019-09-25] MEDS ORDERED: D5% in Water 1,000 ML IVC PRN (13:41)
[2019-09-25] MEDS ORDERED: *HR* Metoprolol 5 MG/5 ML VIAL IVP ONE ×3 (15:54→22:25)
[2019-09-25] MEDS: Metoprolol XL (24 HR) Succ 50 MG TAB.ER.24H PO SCH (16:22)
[2019-09-25] MEDS: DilTIAZem CD (24hr) 180 MG CAP.ER.24H PO SCH (16:22)
[2019-09-25] MEDS: Furosemide 40 MG TABLET PO SCH (16:23)
[2019-09-25 16:53] LABS: Estimated Average Glucose 318 mg/dl
[2019-09-25 16:58] LABS: Magnesium 1.8 mg/dL (1.6-2.6); Troponin I < 0.03 ng/mL (< 0.04)
[2019-09-25] MEDS: Insulin LISPRO 300 UNITS/3 ML VIAL SQ SCH ×2 (16:59→23:11)
[2019-09-25] MEDS ORDERED: Insulin DETEMIR 100 UNIT/ML X5UNITS SQ SCH (21:00)
[2019-09-25] MEDS: Insulin DETEMIR 100 UNIT/ML X5UNITS SQ SCH (23:10)
[2019-09-26 06:45] LABS: Basophils # 0.1 K/mcL (0.0-0.2); Basophils % 0.7 %; Eosinophils # 0.2 K/mcL (0.0-0.6); Eosinophils % 2.4 %; Hematocrit 45.5 % (37.5-50.1); Hemoglobin 14.2 g/dL (12.9-16.9); Immature Granulocytes % 0.4 % (0-4); Lymphocytes # 1.2 K/mcL (0.6-4.6); Lymphocytes % 16.6 %; Mean Corpuscular HGB Conc 31.2 g/dL (31.6-35.5); Mean Corpuscular Hemoglobin 23.9 pg (28.0-33.3); Mean Corpuscular Volume 76.6 fL (83.0-100.0); Mean Platelet Volume 8.6 fL (9.4-12.4); Monocytes # 0.8 K/mcL (0.0-1.3); Monocytes % 11.6 %; Neutrophils # 4.8 K/mcL (1.6-8.9); Platelet Count 321 K/mcL (140-400); Red Blood Count 5.94 M/mcL (4.19-5.50); Red Cell Distribution Width 19.4 % (11.5-14.5); Segmented Neutrophils % 68.3 %; White Blood Count 7.1 K/mcL (4.3-11.1)
[2019-09-26] MEDS: Insulin DETEMIR 100 UNIT/ML X5UNITS SQ SCH ×3 (06:48→21:42)
[2019-09-26 06:56] LABS: INR 1.7; Prothrombin Time 18.9 Seconds (9.4-12.1)
[2019-09-26 07:05] LABS: BUN/Creatinine Ratio 19 (6-26); Blood Urea Nitrogen 14 mg/dL (6-20); Calcium 9.2 mg/dL (8.6-10.3); Carbon Dioxide 25 mEq/L (23-29); Chloride 97 mEq/L (98-107); Glucose 264 mg/dL (70-105); Osmolality,Calculated 288 (280-300); Potassium 3.7 mEq/L (3.5-5.1); Sodium 134 mEq/L (136-145); eGFR For African Americans > 60 (> 60); eGFR For Non-African Americans > 60 (> 60)
[2019-09-26] MEDS: Metoprolol XL (24 HR) Succ 50 MG TAB.ER.24H PO SCH (07:33)
[2019-09-26] MEDS: DilTIAZem CD (24hr) 180 MG CAP.ER.24H PO SCH (07:33)
[2019-09-26] MEDS: Furosemide 40 MG TABLET PO SCH ×2 (07:34→16:51)
[2019-09-26] MEDS: Insulin LISPRO 300 UNITS/3 ML VIAL SQ SCH ×4 (07:38→21:41)
[2019-09-26] MEDS ORDERED: Metoprolol XL (24 HR) Succ 50 MG TAB.ER.24H PO SCH (09:00)
[2019-09-26] MEDS ORDERED: *HR* Warfarin 5 MG TABLET PO SCH (09:00)
[2019-09-26] MEDS ORDERED: Perflutren Lipid Microsphere 1.3 ML in 0.9 % Sodium Chloride 8.7 ML IVP ONE (09:35)
[2019-09-26] MEDS ORDERED: Warfarin perPT PO PRN (18:00)
[2019-09-26] MEDS ORDERED: Metoprolol 100 MG TABLET PO SCH (21:00)
[2019-09-27 05:43] LABS: Hemoglobin 13.9 g/dL (12.9-16.9); Mean Corpuscular HGB Conc 30.9 g/dL (31.6-35.5); Mean Corpuscular Hemoglobin 23.5 pg (28.0-33.3); Mean Corpuscular Volume 76.1 fL (83.0-100.0); Mean Platelet Volume 8.8 fL (9.4-12.4); Platelet Count 350 K/mcL (140-400); Red Blood Count 5.91 M/mcL (4.19-5.50); Red Cell Distribution Width 19.5 % (11.5-14.5)
[2019-09-27 05:56] LABS: INR 1.7; Prothrombin Time 19.2 Seconds (9.4-12.1)
[2019-09-27 06:04] LABS: BUN/Creatinine Ratio 18 (6-26); Blood Urea Nitrogen 14 mg/dL (6-20); Calcium 9.4 mg/dL (8.6-10.3); Carbon Dioxide 25 mEq/L (23-29); Chloride 98 mEq/L (98-107); Glucose 240 mg/dL (70-105); Osmolality,Calculated 286 (280-300); Potassium 3.7 mEq/L (3.5-5.1); Sodium 134 mEq/L (136-145); eGFR For African Americans > 60 (> 60); eGFR For Non-African Americans > 60 (> 60)
[2019-09-27] MEDS ORDERED: Metoprolol XL (24 HR) Succ 50 MG TAB.ER.24H PO SCH (09:00)
[2019-09-27] MEDS: Insulin LISPRO 300 UNITS/3 ML VIAL SQ SCH ×4 (09:23→20:57)
[2019-09-27] MEDS: Furosemide 40 MG TABLET PO SCH (09:23)
[2019-09-27] MEDS: DilTIAZem CD (24hr) 180 MG CAP.ER.24H PO SCH (09:23)
[2019-09-27] MEDS: Insulin DETEMIR 100 UNIT/ML X5UNITS SQ SCH ×2 (09:28→20:58)
[2019-09-27] MEDS ORDERED: Furosemide 40 MG/4 ML VIAL IVP ONE ×2 (10:22→17:00)
[2019-09-27] MEDS: Metoprolol XL (24 HR) Succ 50 MG TAB.ER.24H PO SCH (10:43)
[2019-09-27] MEDS ORDERED: *HR* Warfarin 5 MG TABLET PO ONE (18:00)
[2019-09-28 07:12] LABS: INR 1.4; Prothrombin Time 16.3 Seconds (9.4-12.1)
[2019-09-28 07:22] LABS: Hematocrit 44.6 % (37.5-50.1); Hemoglobin 13.4 g/dL (12.9-16.9); Mean Corpuscular Hemoglobin 23.8 pg (28.0-33.3); Mean Corpuscular Volume 79.4 fL (83.0-100.0); Mean Platelet Volume 8.9 fL (9.4-12.4); Platelet Count 307 K/mcL (140-400); Red Blood Count 5.62 M/mcL (4.19-5.50); Red Cell Distribution Width 19.6 % (11.5-14.5); White Blood Count 7.6 K/mcL (4.3-11.1)
[2019-09-28 07:23] LABS: BUN/Creatinine Ratio 18 (6-26); Blood Urea Nitrogen 13 mg/dL (6-20); Calcium 9.4 mg/dL (8.6-10.3); Carbon Dioxide 27 mEq/L (23-29); Chloride 95 mEq/L (98-107); Glucose 238 mg/dL (70-105); Osmolality,Calculated 286 (280-300); Potassium 3.4 mEq/L (3.5-5.1); Sodium 134 mEq/L (136-145); eGFR For African Americans > 60 (> 60); eGFR For Non-African Americans > 60 (> 60)
[2019-09-28] MEDS: Insulin DETEMIR 100 UNIT/ML X5UNITS SQ SCH (09:00)
[2019-09-28] MEDS: Insulin LISPRO 300 UNITS/3 ML VIAL SQ SCH ×2 (09:17→13:54)
[2019-09-28] MEDS: Metoprolol XL (24 HR) Succ 50 MG TAB.ER.24H PO SCH (10:58)
[2019-09-28] MEDS: DilTIAZem CD (24hr) 180 MG CAP.ER.24H PO SCH (10:59)
[2019-09-28 12:09] VITALS: BP 116/78
[2019-09-28] MEDS ORDERED: *HR* Warfarin 7.5 MG TABLET PO ONE (18:00)
== END 2019-09-28 15:24 | disposition home or self-care (01) | DRG 292 ==
LOC: EMEROOARM 10:34 → 3BNU 10:34
PROVIDERS: ADMIT Internal Medicine; ATTEND Internal Medicine